=== PATIENT | male | born 1955 | race Two or more races ===

== ENCOUNTER 2018-11-02 01:06 | Inpatient (IN) | payer SELFPAY ==
[~2018-11-02] VITALS: Ht 165.1 cm; Wt 65.3 kg
[2018-11-02] MEDS ORDERED: IPRATRPIUM/ALBUTEROL 0.5/2.5MG 3 ML NEBU. ONE (01:47)
--- NOTE | 2018-11-02 01:59 | PHYS DOC ---
Past Medical History Past Medical History: No Pertinent History, Unknown Additional Past Medical Histor: Pt states he has never seen a physician Past Surgical History: No Surgical History Smokin Pack Per Day Alcohol Use: Heavy Drug Use: None Adult General Chief Complaint Chief Complaint: SHORTNESS OF BREATH HPI HPI Mr. Cueto is a 63yo M who presents w/ severe shortness of breath that began approximately 20min prior to arrival to the ED. States this h as occurred 3 times before but tonight's episode is worse than the other episodes. Denies chest pain. Denies trauma. Denies fever/chills. Denies leg swelling or calf tenderness. Denies cough. Patient reports he has never seen a doctor before in his life. Review of Systems Review of Systems Constitutional: Denies fever or chills Eyes: Denies redness or eye pain HENT: Denies nasal congestion or sore throat Respiratory: Reports shortness of breath. Denies cough or hemoptysis. Cardiovascular: Denies chest pain or palpitations GI: Denies abdominal pain, nausea, vomiting, constipation, diarrhea, or hematochezia : Denies dysuria or hematuria Musculoskeletal: Denies back pain or joint pain Neurologic: Denies headache, focal weakness or sensory changes Complete systems were reviewed and found to be within normal limits, except as documented in this note. Current Medications Current Medications Current Medications Medications (Trade) Dose Ordered Sig/Luciano Start Time Stop Time Status Last Admin Dose Admin Albuterol/ Ipratropium (Duoneb) 3 ml STK-MED ONCE 11/02/18 01:47 11/02/18 01:48 DC Aspirin (Kris Aspirin) 325 mg 1X ONCE 11/02/18 02:30 11/02/18 03:18 DC 11/02/18 02:30 325 MG Dexamethasone Sodium Phosphate (Decadron) 10 mg 1X ONCE 11/02/18 02:00 11/02/18 02:01 DC 11/02/18 02:00 10 MG Allergies Allergies Allergies Coded Allergies Type Severity Reaction Last Updated Verified No Known Drug Allergies 11/02/18 No Physical Exam Physical Exam Constitutional: well developed, well nourished, mild acute distress, non-toxic appearance HENT: Normocephalic, atraumatic, oropharynx moist Eyes: PERRL, EOMI, conjunctiva normal, no discharge Neck: Normal range of motion, no tenderness, supple Cardiovascular: Heart regular rate and rhythm w/o gallops, rubs, or murmurs. UE radial pulses intact 2/4 b/l. Lungs & Thorax: clear to auscultation w/ wheezing b/l and throughout Abdomen: Soft, no tenderness, no ecchymosis Skin: Warm, dry, no erythema, no rash Back: No tenderness, no CVA tenderness Extremities: No tenderness, ROM intact, no edema Neurologic: Alert and oriented X 3, normal motor function, normal sensory functi on, no focal deficits noted Psychologic: Affect normal, judgement normal, mood normal Current Patient Data Vital Signs Vital Signs Date Time Temp Pulse Resp B/P (MAP) Pulse Ox O2 Delivery O2 Flow Rate FiO2 11/02/18 02:27 74 19 111/71 (84) 95 Nasal Cannula 2.0 11/02/18 01:40 97.9 97.9 Lab Values Laboratory Tests Test 11/02/18 01:50 White Blood Count 12.5 x10^3/uL (4.0-11.0) H Red Blood Count 4.57 x10^6/uL (4.30-5.70) Hemoglobin 14.7 g/dL (13.0-17.5) Hematocrit 43.0 % (39.0-53.0) Mean Corpuscular Volume 94 fL (79-100) Mean Corpuscular Hemoglobin 32 pg (25-35) Mean Corpuscular Hemoglobin Concent 34 g/dL (31-37) Red Cell Distribution Width 13.8 % (11.5-14.5) Platelet Count 226 x10^3/uL (140-400) Neutrophils (%) (Auto) 63 % (31-73) Lymphocytes (%) (Auto) 30 % (24-48) Monocytes (%) (Auto) 4 % (0-9) Eosinophils (%) (Auto) 2 % (0-3) Basophils (%) (Auto) 1 % (0-3) Neutrophils # (Auto) 7.9 x10^3/uL (1.8-7.7) H Lymphocytes # (Auto) 3.7 x10^3/uL (1.0-4.8) Monocytes # (Auto) 0.6 x10^3/uL (0.0-1.1) Eosinophils # (Auto) 0.2 x10^3/uL (0.0-0.7) Basophils # (Auto) 0.1 x10^3/uL (0.0-0.2) D-Dimer (Humaira) 0.39 ug/mlFEU (0.00-0.50) Sodium Level 146 mmol/L (136-145) H Potassium Level 4.0 mmol/L (3.5-5.1) Chloride Level 108 mmol/L (98-107) H Carbon Dioxide Level 26 mmol/L (21-32) Anion Gap 12 (6-14) Blood Urea Nitrogen 13 mg/dL (8-26) Creatinine 0.8 mg/dL (0.7-1.3) Estimated GFR (Cockcroft-Gault) 97.3 BUN/Creatinine Ratio 16 (6-20) Glucose Level 120 mg/dL (70-99) H Lactic Acid Level 1.4 mmol/L (0.4-2.0) Calcium Level 8.3 mg/dL (8.5-10.1) L Magnesium Level 1.8 mg/dL (1.8-2.4) Total Bilirubin 0.4 mg/dL (0.2-1.0) Aspartate Amino Transferase (AST) 33 U/L (15-37) Alanine Aminotransferase (ALT) 33 U/L (16-63) Alkaline Phosphatase 89 U/L (46-116) Creatine Kinase 50 U/L (39-308) Creatine Kinase MB (Mass) 1.3 ng/mL (0.0-3.6) Creatine Kinase MB Relative Index % (0-4) Troponin I Quantitative 0.060 ng/mL (0.000-0.055) MK-Pme-B-Type Natriuretic Peptide 37 pg/mL (0-124) Total Protein 7.3 g/dL (6.4-8.2) Albumin 3.5 g/dL (3.4-5.0) Albumin/Globulin Ratio 0.9 (1.0-1.7) L Laboratory Tests 11/02/18 01:50 Laboratory Tests 11/02/18 01:50 EKG EKG @0157 NSR at 78bpm, NO ST elevation, QRS 88ms, QT/QTc 370/425ms Radiology/Procedures Radiology/Procedures PROCEDURE: CHEST PA & LATERAL EXAM: PA and Lateral Views of the Chest DATE: 11/02/2018 1:35 AM INDICATION: Dyspnea COMPARISON: No Prior FINDINGS: Aorta is mildly tortuous. The heart is not enlarged. Mediastinal and hilar contours are normal. Patchy opacities bilateral lung bases likely atelectasis or developing consolidation. No pleural effusion or pneumothorax. IMPRESSION: Patchy opacities bilateral lung bases likely atelectasis or developing consolidation. Electronically signed by: Marco Hurd MD (11/02/2018 2:45 AM) [facility] Course & Med Decision Making Course & Med Decision Making Pertinent Labs and Imaging studies reviewed. (See chart for details) Patient presents with HPI and physical exam concerning for COPD exacerbation,. Patient noted to be hypoxic upon arrival. Improved with supplemental O2. Symptomatic treatment provided with respiratory nebs and IV steroid. Patient reports interval improvement. Labs obtained and posted to chart. Troponin elevated. EKG stable. ASA given. CXR with signs of atelectasis. D-dimer WNL. Patient requiring admission for further evaluation and treatment. Discussed with Dr. Vila (hospitalist) who is in agreement with admission. Discussed findings and plan with patient and family, who acknowledge understanding and agreement. Dragon Disclaimer Dragon Disclaimer This electronic medical record was generated, in whole or in part, using a voice recognition dictation system. Departure Departure Impression: Primary Impression: COPD exacerbation Additional Impressions: Hypoxia Elevated troponin Disposition: ADMITTED INPATIENT Admitting Physician: JEFFERSON Parr) Condition: GUARDED Referrals: NO PCP (PCP) Critical Care Time Critical care time was 30 minutes which includes time at bedside, spent in discussion of patient's care with specialists and/or family members, with interpretation of laboratory and/or radiological studies and is exclusive of procedures. Problem Qualifiers SHRUTHI SHAW DO Nov 02, 2018 01:59
[2018-11-02] MEDS ORDERED: DEXAMETHASONE SOD PHOS 20 MG/5 ML VIAL. IV ONE (02:00)
[2018-11-02] MEDS ORDERED: IPRATRPIUM/ALBUTEROL 0.5/2.5MG 3 ML NEBU. NEB ONE (02:00)
[2018-11-02 02:03] LABS: BASO # 0.1 x10^3/uL (0.0-0.2); BASO % 1 % (0-3); EOS # 0.2 x10^3/uL (0.0-0.7); EOS % 2 % (0-3); HEMOGLOBIN 14.7 g/dL (13.0-17.5); LYMPH # 3.7 x10^3/uL (1.0-4.8); LYMPH % 30 % (24-48); MEAN CORPUSCULAR HEMOGLOBIN 32 pg (25-35); MEAN CORPUSCULAR HGB CONC 34 g/dL (31-37); MEAN CORPUSCULAR VOLUME 94 fL (79-100); MONO # 0.6 x10^3/uL (0.0-1.1); MONO % 4 % (0-9); NEUT # 7.9 x10^3/uL (1.8-7.7); NEUT % 63 % (31-73); PLATELET COUNT 226 x10^3/uL (140-400); RED BLOOD COUNT 4.57 x10^6/uL (4.30-5.70); RED CELL DISTRIBUTION WIDTH 13.8 % (11.5-14.5); WHITE BLOOD COUNT 12.5 x10^3/uL (4.0-11.0)
[2018-11-02 02:11] LABS: CALCIUM 8.3 mg/dL (8.5-10.1); CREATININE 0.8 mg/dL (0.7-1.3); GFR 97.3
[2018-11-02 02:19] LABS: ALBUMIN 3.5 g/dL (3.4-5.0); ALBUMIN/GLOBULIN RATIO 0.9 (1.0-1.7); MAGNESIUM 1.8 mg/dL (1.8-2.4); TOTAL BILIRUBIN 0.4 mg/dL (0.2-1.0); TOTAL PROTEIN 7.3 g/dL (6.4-8.2)
[2018-11-02 02:29] LABS: CREATINE KINASE 50 U/L (39-308)
[2018-11-02] MEDS ORDERED: ASPIRIN 325 MG TABLET PO ONE (02:30)
--- NOTE | 2018-11-02 02:49 | RAD ---
EXAM: PA and Lateral Views of the Chest DATE: 11/02/2018 1:35 AM INDICATION: Dyspnea COMPARISON: No Prior FINDINGS: Aorta is mildly tortuous. The heart is not enlarged. Mediastinal and hilar contours are normal. Patchy opacities bilateral lung bases likely atelectasis or developing consolidation. No pleural effusion or pneumothorax. IMPRESSION: Patchy opacities bilateral lung bases likely atelectasis or developing consolidation. Electronically signed by: Marco Hurd MD (11/02/2018 2:45 AM) [facility]
[2018-11-02] MEDS ORDERED: ONDANSETRON PF 4 MG/2 ML VIAL. IV PRN ×2 (03:30→09:30)
[2018-11-02 05:20] VITALS: BP 125/71
--- NOTE | 2018-11-02 05:53 | NUR ---
Admitted pt from Ed at 0520, received pt via wheelchair, pt is awake and oriented, Greek speaking but can understand little Yi. Pt denies home medication. Lives with his sister, [place] 4 [place].
[2018-11-02 07:40] VITALS: BP 118/60
--- NOTE | 2018-11-02 07:53 | EKG ---
[facility] [address] [place] [address] Test Date: 2018-11-02 Test Time: 01:57:07 Pat Name: KENNY ALVARADO Department: Room: Gender: M Business Executive: : 1955 Requested By: SHRUTHI SHAW Order Number: [id number] Reading MD: Measurements Intervals [place] Rate: 78 P: 61 CT: 158 QRS: 45 QRSD: 88 T: 60 QT: 370 QTc: 425 Interpretive Statements SINUS RHYTHM NO SPECIFIC ECG ABNORMALITIES RI6.01 No previous ECG available for comparison
[2018-11-02] MEDS ORDERED: ALBUTEROL SULFATE 2.5 MG/3 ML NEBU. NEB PRN (09:30)
[2018-11-02] MEDS ORDERED: ACETAMINOPHEN 500 MG TABLET PO PRN (09:30)
[2018-11-02] MEDS ORDERED: ACETAMINOPHEN/CODEINE 300/30MG TABLET. PO PRN (09:30)
[2018-11-02] MEDS ORDERED: TEMAZEPAM 7.5 MG CAPSULE PO PRN (09:30)
[2018-11-02] MEDS ORDERED: guaiFENesin DM 200MG/20MG 10 ML SYRUP PO PRN (09:30)
--- NOTE | 2018-11-02 10:01 | PDOC2 ---
CARDIAC CONSULT DATE OF CONSULT Date of Consult DATE: 11/02/18 TIME: 09:55 REASON FOR CONSULT Reason for Consult: Elevated troponin REFERRING PHYSICIAN Referring Physician: Dr. Hernandez SOURCE Source: Chart review, Patient HISTORY OF PRESENT ILLNESS HISTORY OF PRESENT ILLNESS This is a 63 yo Japanese-speaking male who presented secondary to shortness of breath. Troponin noted to be elevated, which prompted this consult. Patient repots acute onset of shortness of breath last that began around 11pm. [place] as if he couldn't catch his breath. Was slightly diaphoretic. Denies any associated chest pain, palpitations, dizziness, or nausea/vomiting. Reports that he got out of bed and went outside for some fresh air. This did not improved his shortness of breath, so sister encouraged him to go to the ED for further evaluation and treatment. Reports he has had this occur about a month ago, but was not this significant. Does notice some occasional shortness of breath upon awakening, but seems to improve during the day. No recent ARROYO or orthopnea. No known medical history as he does not go to the doctor. PAST MEDICAL HISTORY Cardiovascular: No pertinent hx Pulmonary: No pertinent hx GI: No pertinent hx Heme/Onc: No pertinent hx Hepatobiliary: No pertinent hx Psych: No pertinent hx Rheumatologic: No pertinent hx Infectious disease: No pertinent hx ENT: No pertinent hx Renal/: No pertinent hx Endocrine: No pertinent hx Dermatology: No pertinent hx PAST SURGICAL HISTORY Past Surgical History: No pertinent history FAMILY HISTORY Family History: Heart Disease, Hypertension, Stroke (mother ) SOCIAL HISTORY Smoke: 1 pack per day ALCOHOL: other (quit 5 months ago) Drugs: None Lives: with Family CURRENT MEDICATIONS CURRENT MEDICATIONS Current Medications Medications (Trade) Dose Ordered Sig/Luciano Route PRN Reason Start Time Stop Time Status Last Admin Dose Admin Albuterol/ Ipratropium (Duoneb) 3 ml 1X ONCE NEB 11/02/18 02:00 11/02/18 02:01 DC 11/02/18 01:51 Dexamethasone Sodium Phosphate (Decadron) 10 mg 1X ONCE IV 11/02/18 02:00 11/02/18 02:01 DC 11/02/18 02:00 Aspirin (Kris Aspirin) 325 mg 1X ONCE PO 11/02/18 02:30 11/02/18 03:18 DC 11/02/18 02:30 ALLERGIES ALLERGIES: Coded Allergies: No Known Drug Allergies (Unverified , 11/02/18) ROS Review of System 14 point ROS conducted with pertinent positives noted above in HPI. PHYSICAL EXAM General: Alert, Oriented X3, Cooperative, No acute distress HEENT: Atraumatic, Mucous membr. moist/pink Lungs: Clear to auscultation, Normal air movement, Other (diminished ) Heart: Regular rate, Normal S1, Normal S2, No murmurs Abdomen: Soft, No tenderness Extremities: No edema, Normal pulses Skin: No significant lesion Neuro: Sensation intact Psych/Mental Status: Mental status NL, Mood NL MUSCULOSKELETAL: Osteoarthritic changes both hands VITALS/I&O VITALS/I&O: Vital Signs Date Time Temp Pulse Resp B/P (MAP) Pulse Ox O2 Delivery O2 Flow Rate FiO2 11/02/18 08:00 Nasal Cannula 2.0 11/02/18 07:40 97.9 72 18 118/60 (79) 99 97.9 I & O 11/01/18 11/01/18 11/02/18 14:59 22:59 06:59 Intake Total 150 ml Balance 150 ml LABS Lab: Laboratory Tests Test 11/02/18 01:50 11/02/18 04:00 11/02/18 09:15 White Blood Count 12.5 x10^3/uL (4.0-11.0) H Red Blood Count 4.57 x10^6/uL (4.30-5.70) Hemoglobin 14.7 g/dL (13.0-17.5) Hematocrit 43.0 % (39.0-53.0) Mean Corpuscular Volume 94 fL (79-100) Mean Corpuscular Hemoglobin 32 pg (25-35) Mean Corpuscular Hemoglobin Concent 34 g/dL (31-37) Red Cell Distribution Width 13.8 % (11.5-14.5) Platelet Count 226 x10^3/uL (140-400) Neutrophils (%) (Auto) 63 % (31-73) Lymphocytes (%) (Auto) 30 % (24-48) Monocytes (%) (Auto) 4 % (0-9) Eosinophils (%) (Auto) 2 % (0-3) Basophils (%) (Auto) 1 % (0-3) Neutrophils # (Auto) 7.9 x10^3/uL (1.8-7.7) H Lymphocytes # (Auto) 3.7 x10^3/uL (1.0-4.8) Monocytes # (Auto) 0.6 x10^3/uL (0.0-1.1) Eosinophils # (Auto) 0.2 x10^3/uL (0.0-0.7) Basophils # (Auto) 0.1 x10^3/uL (0.0-0.2) D-Dimer (Humaira) 0.39 ug/mlFEU (0.00-0.50) Sodium Level 146 mmol/L (136-145) H Potassium Level 4.0 mmol/L (3.5-5.1) Chloride Level 108 mmol/L (98-107) H Carbon Dioxide Level 26 mmol/L (21-32) Anion Gap 12 (6-14) Blood Urea Nitrogen 13 mg/dL (8-26) Creatinine 0.8 mg/dL (0.7-1.3) Estimated GFR (Cockcroft-Gault) 97.3 BUN/Creatinine Ratio 16 (6-20) Glucose Level 120 mg/dL (70-99) H Lactic Acid Level 1.4 mmol/L (0.4-2.0) Calcium Level 8.3 mg/dL (8.5-10.1) L Magnesium Level 1.8 mg/dL (1.8-2.4) Total Bilirubin 0.4 mg/dL (0.2-1.0) Aspartate Amino Transferase (AST) 33 U/L (15-37) Alanine Aminotransferase (ALT) 33 U/L (16-63) Alkaline Phosphatase 89 U/L (46-116) Creatine Kinase 50 U/L (39-308) Creatine Kinase MB (Mass) 1.3 ng/mL (0.0-3.6) Creatine Kinase MB Relative Index % (0-4) Troponin I Quantitative 0.060 ng/mL (0.000-0.055) 0.658 ng/mL (0.000-0.055) 0.903 ng/mL (0.000-0.055) FY-Wsr-M-Type Natriuretic Peptide 37 pg/mL (0-124) Total Protein 7.3 g/dL (6.4-8.2) Albumin 3.5 g/dL (3.4-5.0) Albumin/Globulin Ratio 0.9 (1.0-1.7) L Laboratory Tests 11/02/18 01:50 Laboratory Tests 11/02/18 01:50 ASSESSMENT/PLAN ASSESSMENT/PLAN 1. Dyspnea; ? COPD with h/o chronic tobaccoism. cannot rule out obstructive CAD component 2. Elevated troponin; highest 0.9. CP free 3. Tobaccoism; discussed/encouraged cessation 4. Leukocytosis, ?CAP. CXR with consolidation Recommendations Echo to assess LV systolic function Add ASA, low-dose BB lipid panel Recheck trop in am Keep NPO p [place] D/w primary business services coordinator. If troponin continue to trend upward, or echo signific antly abnormal, will plan for further ischemic evaluation with [facility] tomorrow. THERESA EWING APRN Nov 02, 2018 10:01
[2018-11-02] MEDS: METOPROLOL TART IMMED RELEASE 25 MG TABLET. PO SCH ×2 (11:29→19:59)
[2018-11-02 11:30] VITALS: BP 124/68
--- NOTE | 2018-11-02 12:11 | CARD ---
MR#: [id number] Date of Study: 11/02/2018 Ordering Physician: THERESA EWING, Referring Physician: KARISSA BARCENAS Tech: Yee Rodriguez APPROVED REPORT EXAM: Two-dimensional and M-mode echocardiogram with Doppler and color Doppler. Other Information Quality : FairHR: 57bpm Technically limited study due to smoking INDICATION COPD Dyspnea RISK FACTORS Smoking 2D DIMENSIONS Left Atrium(2D)3.0 (1.6-4.0cm)IVSd1.2 (0.7-1.1cm) Aortic Root(2D)3.1 (2.0-3.7cm)LVDd5.1 (3.9-5.9cm) LVOT Diameter2.0 (1.8-2.4cm)PWd1.3 (0.7-1.1cm) LVDs3.0 (2.5-4.0cm)FS (%) 41.2 % SV88.7 ml Aortic Valve AoV Peak Lance.93.7cm/sAoV VTI22.8cm AO Peak GR.3.5mmHgLVOT Peak Lance.88.4cm/s LVOT VTI 19.11cmAO Mean GR.2mmHg LESTER (VMAX)2.48nx7QCU (VTI)2.75cm2 Mitral Valve MV E Uerhcsxk81.7cm/sMV DECEL ZUQP320pr MV A Jdcncbwu79.6cm/sMV YTW69lh E/A Ratio0.9MVA (PHT)4.43cm2 TDI E/Lateral E'9.2E/Medial E'9.7 Pulmonary Valve PV Peak Tvwwyobk72.6cm/sPV Peak Grad.2mmHg Tricuspid Valve TR P. Gzgnjxgq285tc/sRAP OQPHINGT2dlBx TR Peak Gr.55dfXfIYHZ80iqPu Pulmonary Vein S1 Hmtdynzd77.1cm/sD2 Xzlziqsd55.9cm/s PVa [id number] LEFT VENTRICLE The left ventricle is normal size. There is mild concentric left ventricular hypertrophy. The left ve ntricular systolic function is normal and the ejection fraction is within normal range. The Ejection Fraction is 55-60%. There is normal LV segmental wall motion. Transmitral Doppler flow pattern is Gra de I-abnormal relaxation pattern. RIGHT VENTRICLE The right ventricle is mildly dilated. There is normal right ventricular wall thickness. The right ve ntricular systolic function is normal. ATRIA The left atrium is borderline dilated. The right atrium size is normal. The interatrial septum is int act with no evidence for an atrial septal defect or patent foramen ovale as noted on 2-D or Doppler i maging. AORTIC VALVE The aortic valve is normal in structure and function. Doppler and Color Flow revealed trace aortic re gurgitation. There is no significant aortic valvular stenosis. MITRAL VALVE The mitral valve is thickened but opens well. There is no evidence of mitral valve prolapse. There is no mitral valve stenosis. Doppler and Color-flow revealed trace mitral regurgitation. TRICUSPID VALVE The tricuspid valve is normal in structure and function. Doppler and Color Flow revealed trace tricus pid regurgitation with an estimated PAP of 36 mmHg. There is no tricuspid valve prolapse or vegetatio n. There is no tricuspid valve stenosis. PULMONIC VALVE The pulmonic valve is not well visualized. Doppler and Color Flow revealed no pulmonic valvular regur gitation. GREAT VESSELS The aortic root is normal in size. The IVC is normal in size and collapses >50% with inspiration. PERICARDIAL EFFUSION There is no evidence of significant pericardial effusion. Critical Notification Critical Value: No <Conclusion> The left ventricle is normal size. The left ventricular systolic function is normal and the ejection fraction is within normal range. The Ejection Fraction is 55-60%. There is mild concentric left ventricular hypertrophy. There is no significant aortic valvular stenosis. Doppler and Color Flow revealed trace aortic regurgitation. Doppler and Color-flow revealed trace mitral regurgitation. Doppler and Color Flow revealed trace tricuspid regurgitation with an estimated PAP of 36 mmHg. Signed by : Mickey Sr MD Electronically Approved : 11/02/2018 12:11:35
[2018-11-02] MEDS ORDERED: NICO1PAT21 TP (12:21)
[2018-11-02] MEDS ORDERED: METO25TA4 PO (12:21)
[2018-11-02] MEDS ORDERED: ASPI-612 PO (12:21)
[2018-11-02] MEDS ORDERED: CEPH-264 PO (12:21)
[2018-11-02] MEDS ORDERED: ALBU2.5V8 INH (12:21)
[2018-11-02] MEDS ORDERED: GUAI5SYR PO (12:21)
--- NOTE | 2018-11-02 12:26 | PDOC1 ---
History and Physical Date of Admission Date of Admission DATE: 11/02/18 TIME: 12:22 Identification/Chief Complaint Chief Complaint S OA and chest pain Source Source: Caregiver, Chart review, Patient History of Present Illness History of Present Illness 63-year-old male, limited lithuanian, smoker a pack a day, no home meds to reconcile, unable to quit smoking, SOA and chest pain with some acute bronchitis symptoms For the past few days. No fever. Chest x-ray shows maybe beginning consolidation. Troponin mildly elevated 0.06 then 0.6 and hemodynamically stable and seen by cardiology with reassuring EKG and has ordered echocardiogram. WBC 12.55, hypernatremia mild 146 MInimal wheezing, if echo today, home on PCN, BB, ASA 81, nebs, cough med,. SP Dw help of welder gas tungsten arc and rn at bedside. Past Medical History Cardiovascular: No pertinent hx Pulmonary: No pertinent hx GI: No pertinent hx Heme/Onc: No pertinent hx Hepatobiliary: No pertinent hx Psych: No pertinent hx Rheumatologic: No pertinent hx Infectious disease: No pertinent hx ENT: No pertinent hx Renal/: No pertinent hx Endocrine: No pertinent hx Dermatology: No pertinent hx Past Surgical History Past Surgical History: No pertinent history Family History Family History: Heart Disease, Hypertension, Stroke (mother ) Social History Smoke: 1 pack per day ALCOHOL: none Drugs: None Current Problem List Problem List Problems Medical Problems: (1) Hypoxia Status: Acute Current Medications Current Medications Current Medications Albuterol/ Ipratropium (Duoneb) 3 ml 1X ONCE NEB Last administered on 11/02/18at 01:51; Start 11/02/18 at 02:00; Stop 11/02/18 at 02:01; Status DC Dexamethasone Sodium Phosphate (Decadron) 10 mg 1X ONCE IV Last administered on 11/02/18at 02:00; Start 11/02/18 at 02:00; Stop 11/02/18 at 02:01; Status DC Albuterol/ Ipratropium (Duoneb) 3 ml STK-MED ONCE .ROUTE ; Start 11/02/18 at 01:47; Stop 11/02/18 at 01:48; Status DC Aspirin (Kris Aspirin) 325 mg 1X ONCE PO Last administered on 11/02/18at 02:30; Start 11/02/18 at 02:30; Stop 11/02/18 at 03:18; Status DC Ondansetron HCl (Zofran) 4 mg PRN Q8HRS PRN IV NAUSEA/VOMITING; Start 11/02/18 at 03:30; Stop 11/02/18 at 09:30; Status DC Ondansetron HCl (Zofran) 4 mg PRN Q6HRS PRN IV NAUSEA/VOMITING; Start 11/02/18 at 09:30 Acetaminophen/ Codeine Phosphate (Tylenol #3) 1 tab PRN Q6HRS PRN PO MODERATE - SEVERE PAIN; Start 11/02/18 at 09:30 Acetaminophen (Tylenol) 500 mg PRN Q6HRS PRN PO MILD PAIN / TEMP; Start at 09:30 Guaifenesin (Robitussin Dm) 10 ml PRN Q6HRS PRN PO COUGH; Start 11/02/18 at 09:30 Temazepam (Restoril) 7.5 mg PRN QHS PRN PO INSOMNIA; Start 11/02/18 at 09:30 Albuterol Sulfate (Ventolin Neb Soln) 2.5 mg PRN Q4HRS PRN NEB SHORTNESS OF BREATH; Start 11/02/18 at 09:30 Aspirin (Ecotrin) 81 mg DAILYWBKFT PO ; Start 11/03/18 at 08:00 Metoprolol Tartrate (Lopressor) 12.5 mg BID PO Last administered on 11/02/18at 11:29; Start 11/02/18 at 10:30 Active Scripts Active Keflex (Cephalexin) 500 Mg Capsule 1 Cap PO TID NICODERM CQ 21mg (Nicotine) 1 Each Patch.td24 1 Patch TP DAILY Proair Hfa (Albuterol Sulfate) 8.5 Gm Hfa.aer.ad 1 Puff INH PRN Q6HRS PRN 30 Days Aspirin Ec (Aspirin) 81 Mg Tablet.dr 81 Mg PO DAILYWBKFT Guaifenesin Dm Syrup (Guaifenesin/Dextromethorphan) 5 Ml Syrup 10 Ml PO PRN Q6HRS PRN 7 Days Metoprolol Tartrate 25 Mg Tablet 12.5 Mg PO BID Allergies Allergies: Coded Allergies: No Known Drug Allergies (Unverified , 11/02/18) ROS Review of System As per history of present illness, the rest of ROS 14 point negative Physical Exam General: Alert, Oriented X3, Cooperative, No acute distress HEENT: Atraumatic, PERRLA Lungs: Normal air movement, Other (equal chest expansion no crackles no wheez ing) Heart: S1S2, RRR, no thrills, no rubs, no gallops, no murmurs Cardiovascular: S1, S2 Abdomen: Normal bowel sounds, Soft, No tenderness, No hepatosplenomegaly, No masses Male Genitals Exam: normal genitalia, normal prostate Extremities: No clubbing, No cyanosis, No edema, Normal pulses, No tenderness/swelling Skin: No rashes, No breakdown, No significant lesion Neuro: Normal gait, Normal speech, Strength at 5/5 X4 ext, Normal tone, Sensation intact, Cranial nerves 3-12 NL, Reflexes 2+ Psych/Mental Status: Mental status NL, Mood NL Vitals Vitals Vital Signs Date Time Temp Pulse Resp B/P (MAP) Pulse Ox O2 Delivery O2 Flow Rate FiO2 11/02/18 11:30 98.2 56 18 124/68 (86) 99 Nasal Cannula 2.0 98.2 Labs Labs Laboratory Tests Test 11/02/18 01:50 11/02/18 04:00 11/02/18 09:15 White Blood Count 12.5 x10^3/uL (4.0-11.0) Red Blood Count 4.57 x10^6/uL (4.30-5.70) Hemoglobin 14.7 g/dL (13.0-17.5) Hematocrit 43.0 % (39.0-53.0) Mean Corpuscular Volume 94 fL (79-100) Mean Corpuscular Hemoglobin 32 pg (25-35) Mean Corpuscular Hemoglobin Concent 34 g/dL (31-37) Red Cell Distribution Width 13.8 % (11.5-14.5) Platelet Count 226 x10^3/uL (140-400) Neutrophils (%) (Auto) 63 % (31-73) Lymphocytes (%) (Auto) 30 % (24-48) Monocytes (%) (Auto) 4 % (0-9) Eosinophils (%) (Auto) 2 % (0-3) Basophils (%) (Auto) 1 % (0-3) Neutrophils # (Auto) 7.9 x10^3/uL (1.8-7.7) Lymphocytes # (Auto) 3.7 x10^3/uL (1.0-4.8) Monocytes # (Auto) 0.6 x10^3/uL (0.0-1.1) Eosinophils # (Auto) 0.2 x10^3/uL (0.0-0.7) Basophils # (Auto) 0.1 x10^3/uL (0.0-0.2) D-Dimer (Humaira) 0.39 ug/mlFEU (0.00-0.50) Sodium Level 146 mmol/L (136-145) Potassium Level 4.0 mmol/L (3.5-5.1) Chloride Level 108 mmol/L (98-107) Carbon Dioxide Level 26 mmol/L (21-32) Anion Gap 12 (6-14) Blood Urea Nitrogen 13 mg/dL (8-26) Creatinine 0.8 mg/dL (0.7-1.3) Estimated GFR (Cockcroft-Gault) 97.3 BUN/Creatinine Ratio 16 (6-20) Glucose Level 120 mg/dL (70-99) Lactic Acid Level 1.4 mmol/L (0.4-2.0) Calcium Level 8.3 mg/dL (8.5-10.1) Magnesium Level 1.8 mg/dL (1.8-2.4) Total Bilirubin 0.4 mg/dL (0.2-1.0) Aspartate Amino Transf (AST/SGOT) 33 U/L (15-37) Alanine Aminotransferase (ALT/SGPT) 33 U/L (16-63) Alkaline Phosphatase 89 U/L (46-116) Creatine Kinase 50 U/L (39-308) Creatine Kinase MB (Mass) 1.3 ng/mL (0.0-3.6) Creatine Kinase MB Relative Index % (0-4) Troponin I Quantitative 0.060 ng/mL (0.000-0.055) 0.658 ng/mL (0.000-0.055) 0.903 ng/mL (0.000-0.055) OE-Cju-X-Type Natriuretic Peptide 37 pg/mL (0-124) Total Protein 7.3 g/dL (6.4-8.2) Albumin 3.5 g/dL (3.4-5.0) Albumin/Globulin Ratio 0.9 (1.0-1.7) Laboratory Tests Test 11/02/18 01:50 11/02/18 04:00 11/02/18 09:15 White Blood Count 12.5 x10^3/uL (4.0-11.0) Red Blood Count 4.57 x10^6/uL (4.30-5.70) Hemoglobin 14.7 g/dL (13.0-17.5) Hematocrit 43.0 % (39.0-53.0) Mean Corpuscular Volume 94 fL (79-100) Mean Corpuscular Hemoglobin 32 pg (25-35) Mean Corpuscular Hemoglobin Concent 34 g/dL (31-37) Red Cell Distribution Width 13.8 % (11.5-14.5) Platelet Count 226 x10^3/uL (140-400) Neutrophils (%) (Auto) 63 % (31-73) Lymphocytes (%) (Auto) 30 % (24-48) Monocytes (%) (Auto) 4 % (0-9) Eosinophils (%) (Auto) 2 % (0-3) Basophils (%) (Auto) 1 % (0-3) Neutrophils # (Auto) 7.9 x10^3/uL (1.8-7.7) Lymphocytes # (Auto) 3.7 x10^3/uL (1.0-4.8) Monocytes # (Auto) 0.6 x10^3/uL (0.0-1.1) Eosinophils # (Auto) 0.2 x10^3/uL (0.0-0.7) Basophils # (Auto) 0.1 x10^3/uL (0.0-0.2) D-Dimer (Humaira) 0.39 ug/mlFEU (0.00-0.50) Sodium Level 146 mmol/L (136-145) Potassium Level 4.0 mmol/L (3.5-5.1) Chloride Level 108 mmol/L (98-107) Carbon Dioxide Level 26 mmol/L (21-32) Anion Gap 12 (6-14) Blood Urea Nitrogen 13 mg/dL (8-26) Creatinine 0.8 mg/dL (0.7-1.3) Estimated GFR (Cockcroft-Gault) 97.3 BUN/Creatinine Ratio 16 (6-20) Glucose Level 120 mg/dL (70-99) Lactic Acid Level 1.4 mmol/L (0.4-2.0) Calcium Level 8.3 mg/dL (8.5-10.1) Magnesium Level 1.8 mg/dL (1.8-2.4) Total Bilirubin 0.4 mg/dL (0.2-1.0) Aspartate Amino Transf (AST/SGOT) 33 U/L (15-37) Alanine Aminotransferase (ALT/SGPT) 33 U/L (16-63) Alkaline Phosphatase 89 U/L (46-116) Creatine Kinase 50 U/L (39-308) Creatine Kinase MB (Mass) 1.3 ng/mL (0.0-3.6) Creatine Kinase MB Relative Index % (0-4) Troponin I Quantitative 0.060 ng/mL (0.000-0.055) 0.658 ng/mL (0.000-0.055) 0.903 ng/mL (0.000-0.055) EO-Evz-Y-Type Natriuretic Peptide 37 pg/mL (0-124) Total Protein 7.3 g/dL (6.4-8.2) Albumin 3.5 g/dL (3.4-5.0) Albumin/Globulin Ratio 0.9 (1.0-1.7) VTE Prophylaxis Ordered VTE Prophylaxis Devices: Yes VTE Pharmacological Prophylaxi: Yes Assessment/Plan Assessment/Plan CAP SmOker SiRS. no sepsis ELevated trop - peaks at 0.6 Leukocytosis MIld hypernat - 146 PLAN: Echo, if ok, home today on keflex, BB< asa 81, pro air, steroid taper and cough med OBS JACKIE FREITAS MD Nov 02, 2018 12:26
--- NOTE | 2018-11-02 12:27 | PDOC3 ---
Discharge Summary Visit Information Date of Admission: Nov 01, 2018 Date of Discharge: Nov 02, 2018 Admitting Diagnosis Comment: CAP - beginning consolidation on CXR Smoker Mild hypernatremia 146 Elevated troponin with reassuring EKG-peaks 0.6-echo pending SIRS, no sepsis Final Diagnosis Problems Medical Problems: (1) Hypoxia Status: Acute Brief Hospital Course Allergies Allergies Coded Allergies Type Severity Reaction Last Updated Verified No Known Drug Allergies 11/02/18 No Vital Signs Vital Signs Date Time Temp Pulse Resp B/P (MAP) Pulse Ox O2 Delivery O2 Flow Rate FiO2 11/02/18 11:30 98.2 56 18 124/68 (86) 99 Nasal Cannula 2.0 98.2 Lab Results Laboratory Tests Test 11/02/18 01:50 11/02/18 04:00 11/02/18 09:15 White Blood Count 12.5 x10^3/uL (4.0-11.0) Red Blood Count 4.57 x10^6/uL (4.30-5.70) Hemoglobin 14.7 g/dL (13.0-17.5) Hematocrit 43.0 % (39.0-53.0) Mean Corpuscular Volume 94 fL (79-100) Mean Corpuscular Hemoglobin 32 pg (25-35) Mean Corpuscular Hemoglobin Concent 34 g/dL (31-37) Red Cell Distribution Width 13.8 % (11.5-14.5) Platelet Count 226 x10^3/uL (140-400) Neutrophils (%) (Auto) 63 % (31-73) Lymphocytes (%) (Auto) 30 % (24-48) Monocytes (%) (Auto) 4 % (0-9) Eosinophils (%) (Auto) 2 % (0-3) Basophils (%) (Auto) 1 % (0-3) Neutrophils # (Auto) 7.9 x10^3/uL (1.8-7.7) Lymphocytes # (Auto) 3.7 x10^3/uL (1.0-4.8) Monocytes # (Auto) 0.6 x10^3/uL (0.0-1.1) Eosinophils # (Auto) 0.2 x10^3/uL (0.0-0.7) Basophils # (Auto) 0.1 x10^3/uL (0.0-0.2) D-Dimer (Humaira) 0.39 ug/mlFEU (0.00-0.50) Sodium Level 146 mmol/L (136-145) Potassium Level 4.0 mmol/L (3.5-5.1) Chloride Level 108 mmol/L (98-107) Carbon Dioxide Level 26 mmol/L (21-32) Anion Gap 12 (6-14) Blood Urea Nitrogen 13 mg/dL (8-26) Creatinine 0.8 mg/dL (0.7-1.3) Estimated GFR (Cockcroft-Gault) 97.3 BUN/Creatinine Ratio 16 (6-20) Glucose Level 120 mg/dL (70-99) Lactic Acid Level 1.4 mmol/L (0.4-2.0) Calcium Level 8.3 mg/dL (8.5-10.1) Magnesium Level 1.8 mg/dL (1.8-2.4) Total Bilirubin 0.4 mg/dL (0.2-1.0) Aspartate Amino Transf (AST/SGOT) 33 U/L (15-37) Alanine Aminotransferase (ALT/SGPT) 33 U/L (16-63) Alkaline Phosphatase 89 U/L (46-116) Creatine Kinase 50 U/L (39-308) Creatine Kinase MB (Mass) 1.3 ng/mL (0.0-3.6) Creatine Kinase MB Relative Index % (0-4) Troponin I Quantitative 0.060 ng/mL (0.000-0.055) 0.658 ng/mL (0.000-0.055) 0.903 ng/mL (0.000-0.055) KC-Rqr-K-Type Natriuretic Peptide 37 pg/mL (0-124) Total Protein 7.3 g/dL (6.4-8.2) Albumin 3.5 g/dL (3.4-5.0) Albumin/Globulin Ratio 0.9 (1.0-1.7) Laboratory Tests Test 11/02/18 01:50 11/02/18 04:00 11/02/18 09:15 White Blood Count 12.5 x10^3/uL (4.0-11.0) Red Blood Count 4.57 x10^6/uL (4.30-5.70) Hemoglobin 14.7 g/dL (13.0-17.5) Hematocrit 43.0 % (39.0-53.0) Mean Corpuscular Volume 94 fL (79-100) Mean Corpuscular Hemoglobin 32 pg (25-35) Mean Corpuscular Hemoglobin Concent 34 g/dL (31-37) Red Cell Distribution Width 13.8 % (11.5-14.5) Platelet Count 226 x10^3/uL (140-400) Neutrophils (%) (Auto) 63 % (31-73) Lymphocytes (%) (Auto) 30 % (24-48) Monocytes (%) (Auto) 4 % (0-9) Eosinophils (%) (Auto) 2 % (0-3) Basophils (%) (Auto) 1 % (0-3) Neutrophils # (Auto) 7.9 x10^3/uL (1.8-7.7) Lymphocytes # (Auto) 3.7 x10^3/uL (1.0-4.8) Monocytes # (Auto) 0.6 x10^3/uL (0.0-1.1) Eosinophils # (Auto) 0.2 x10^3/uL (0.0-0.7) Basophils # (Auto) 0.1 x10^3/uL (0.0-0.2) D-Dimer (Humaira) 0.39 ug/mlFEU (0.00-0.50) Sodium Level 146 mmol/L (136-145) Potassium Level 4.0 mmol/L (3.5-5.1) Chloride Level 108 mmol/L (98-107) Carbon Dioxide Level 26 mmol/L (21-32) Anion Gap 12 (6-14) Blood Urea Nitrogen 13 mg/dL (8-26) Creatinine 0.8 mg/dL (0.7-1.3) Estimated GFR (Cockcroft-Gault) 97.3 BUN/Creatinine Ratio 16 (6-20) Glucose Level 120 mg/dL (70-99) Lactic Acid Level 1.4 mmol/L (0.4-2.0) Calcium Level 8.3 mg/dL (8.5-10.1) Magnesium Level 1.8 mg/dL (1.8-2.4) Total Bilirubin 0.4 mg/dL (0.2-1.0) Aspartate Amino Transf (AST/SGOT) 33 U/L (15-37) Alanine Aminotransferase (ALT/SGPT) 33 U/L (16-63) Alkaline Phosphatase 89 U/L (46-116) Creatine Kinase 50 U/L (39-308) Creatine Kinase MB (Mass) 1.3 ng/mL (0.0-3.6) Creatine Kinase MB Relative Index % (0-4) Troponin I Quantitative 0.060 ng/mL (0.000-0.055) 0.658 ng/mL (0.000-0.055) 0.903 ng/mL (0.000-0.055) CL-Znh-Z-Type Natriuretic Peptide 37 pg/mL (0-124) Total Protein 7.3 g/dL (6.4-8.2) Albumin 3.5 g/dL (3.4-5.0) Albumin/Globulin Ratio 0.9 (1.0-1.7) Brief Hospital Course Mr. Suarez is a 63 old [sex] who presented with [ ] 63-year-old male, limited turkish, smoker a pack a day, no home meds to reconcile, unable to quit smoking, SOA and chest pain with some acute bronchitis symptoms For the past few days. No fever. Chest x-ray shows maybe beginning consolidation. Troponin mildly elevated 0.06 then 0.6 and hemodynamically stable and seen by cardiology with reassuring EKG and has ordered echocardiogram. WBC 12.55, hypernatremia mild 146 MInimal wheezing, if echo today, home on PCN, BB, ASA 81, nebs, cough med,. SP Dw help of supervisor intermediates and rn at bedside. Discharge Information Condition at Discharge: Improved, Stable Disposition/Orders: D/C to Home Scheduled Aspirin (Aspirin Ec) 81 Mg Tablet., 81 MG PO DAILYWBKFT for primary prevention, #60 Prescribed by: JACKIE FREITAS on 11/02/18 1221 Cephalexin (Keflex) 500 Mg Capsule, 1 CAP PO TID for CAP, #21 Prescribed by: JACKIE FREITAS on 11/02/18 1221 Metoprolol Tartrate (Metoprolol Tartrate) 25 Mg Tablet, 12.5 MG PO BID for htn, #60 Prescribed by: JACKIE FREITAS on 11/02/18 1221 Nicotine (NICODERM CQ 21mg) 1 Each Patch.td24, 1 PATCH TP DAILY for smoking, #28 Ref 1 Prescribed by: JACKIE FREITAS on 11/02/18 1221 Scheduled PRN Albuterol Sulfate (Proair Hfa) 8.5 Gm Hfa.aer.ad, 1 PUFF INH PRN Q6HRS PRN for SHORTNESS OF BREATH for 30 Days Prescribed by: JACKIE FREITAS on 11/02/18 1221 Guaifenesin/Dextromethorphan (Guaifenesin Dm Syrup) 5 Ml Syrup, 10 ML PO PRN Q6HRS PRN for COUGH for 7 Days Prescribed by: JACKIE FREITAS on 11/02/18 1221 JACKIE FREITAS MD Nov 02, 2018 12:27
--- NOTE | 2018-11-02 14:03 | NUR ---
Clarified with Cardio [employer] MECHANICMitzi at 1400 about the patient's cardiac work up. Cardio service wants the patient to stay one more night, recheck troponin for trend; will update primary MD.
--- NOTE | 2018-11-02 14:45 | PDOC ---
Provider Note Provider Note Trop 0.06, 0.6 now 0.9 with reassuring echo HOLD DC PER CARDS DRAW TROP in AM JACKIE FREITAS MD Nov 02, 2018 14:45
[2018-11-02 15:10] VITALS: BP 126/57
--- NOTE | 2018-11-02 15:50 | NUR ---
SW following pt for dc planning. Chart reviewed and pt lives at home and is self pay. HCFS will follow for Self pay status. No SW needs noted at this time.
[2018-11-02 19:39] VITALS: BP 129/58
[2018-11-02 23:19] VITALS: BP 131/61
[2018-11-03 03:29] VITALS: BP 130/56
[2018-11-03 05:59] LABS: CHOLESTEROL/HDL RATIO 5.3
[2018-11-03 07:00] VITALS: BP 126/58
[2018-11-03] MEDS: METOPROLOL TART IMMED RELEASE 25 MG TABLET. PO SCH ×2 (07:36→20:00)
[2018-11-03] MEDS: ASPIRIN ENTERIC COATED 81 MG TABLET.DR. PO SCH (07:54)
[2018-11-03 11:18] LABS: BASO % 0 % (0-3); EOS % 0 % (0-3); HEMATOCRIT 41.8 % (39.0-53.0); HEMOGLOBIN 14.2 g/dL (13.0-17.5); LYMPH # 3.1 x10^3/uL (1.0-4.8); LYMPH % 23 % (24-48); MEAN CORPUSCULAR HEMOGLOBIN 32 pg (25-35); MEAN CORPUSCULAR HGB CONC 34 g/dL (31-37); MEAN CORPUSCULAR VOLUME 93 fL (79-100); MONO # 0.8 x10^3/uL (0.0-1.1); MONO % 6 % (0-9); NEUT # 9.3 x10^3/uL (1.8-7.7); NEUT % 70 % (31-73); PLATELET COUNT 224 x10^3/uL (140-400); RED BLOOD COUNT 4.47 x10^6/uL (4.30-5.70); RED CELL DISTRIBUTION WIDTH 13.9 % (11.5-14.5); WHITE BLOOD COUNT 13.1 x10^3/uL (4.0-11.0)
[2018-11-03 11:32] VITALS: BP 110/66
[2018-11-03 11:51] LABS: % BANDS 1 % (0-9); % EOS 1 % (0-5); % LYMPHS 28 % (24-48); % MONOS 5 % (0-10); % SEGS 65 % (35-66); PLT ESTIMATE ADEQUATE (ADEQUATE)
--- NOTE | 2018-11-03 13:19 | PDOC3 ---
Discharge Summary Visit Information Date of Admission: Nov 01, 2018 Date of Discharge: Nov 03, 2018 Admitting Diagnosis Comment: CAP - beginning consolidation on CXR Smoker Mild hypernatremia 146 Elevated troponin with reassuring EKG-peaks 0.6-echo good SIRS, no sepsis Final Diagnosis Problems Medical Problems: (1) Hypoxia Status: Acute Brief Hospital Course Allergies Allergies Coded Allergies Type Severity Reaction Last Updated Verified No Known Drug Allergies 11/02/18 No Vital Signs Vital Signs Date Time Temp Pulse Resp B/P (MAP) Pulse Ox O2 Delivery O2 Flow Rate FiO2 11/03/18 11:32 98.2 59 15 110/66 (81) 95 Room Air 98.2 11/02/18 15:10 2.0 Lab Results Laboratory Tests Test 11/02/18 01:50 11/02/18 04:00 11/02/18 09:15 11/03/18 05:00 White Blood Count 12.5 x10^3/uL (4.0-11.0) 13.1 x10^3/uL (4.0-11.0) Red Blood Count 4.57 x10^6/uL (4.30-5.70) 4.47 x10^6/uL (4.30-5.70) Hemoglobin 14.7 g/dL (13.0-17.5) 14.2 g/dL (13.0-17.5) Hematocrit 43.0 % (39.0-53.0) 41.8 % (39.0-53.0) Mean Corpuscular Volume 94 fL (79-100) 93 fL (79-100) Mean Corpuscular Hemoglobin 32 pg (25-35) 32 pg (25-35) Mean Corpuscular Hemoglobin Concent 34 g/dL (31-37) 34 g/dL (31-37) Red Cell Distribution Width 13.8 % (11.5-14.5) 13.9 % (11.5-14.5) Platelet Count 226 x10^3/uL (140-400) 224 x10^3/uL (140-400) Neutrophils (%) (Auto) 63 % (31-73) 70 % (31-73) Lymphocytes (%) (Auto) 30 % (24-48) 23 % (24-48) Monocytes (%) (Auto) 4 % (0-9) 6 % (0-9) Eosinophils (%) (Auto) 2 % (0-3) 0 % (0-3) Basophils (%) (Auto) 1 % (0-3) 0 % (0-3) Neutrophils # (Auto) 7.9 x10^3/uL (1.8-7.7) 9.3 x10^3/uL (1.8-7.7) Lymphocytes # (Auto) 3.7 x10^3/uL (1.0-4.8) 3.1 x10^3/uL (1.0-4.8) Monocytes # (Auto) 0.6 x10^3/uL (0.0-1.1) 0.8 x10^3/uL (0.0-1.1) Eosinophils # (Auto) 0.2 x10^3/uL (0.0-0.7) 0.0 x10^3/uL (0.0-0.7) Basophils # (Auto) 0.1 x10^3/uL (0.0-0.2) 0.0 x10^3/uL (0.0-0.2) D-Dimer (Humaira) 0.39 ug/mlFEU (0.00-0.50) Sodium Level 146 mmol/L (136-145) Potassium Level 4.0 mmol/L (3.5-5.1) Chloride Level 108 mmol/L (98-107) Carbon Dioxide Level 26 mmol/L (21-32) Anion Gap 12 (6-14) Blood Urea Nitrogen 13 mg/dL (8-26) Creatinine 0.8 mg/dL (0.7-1.3) Estimated GFR (Cockcroft-Gault) 97.3 BUN/Creatinine Ratio 16 (6-20) Glucose Level 120 mg/dL (70-99) Lactic Acid Level 1.4 mmol/L (0.4-2.0) Calcium Level 8.3 mg/dL (8.5-10.1) Magnesium Level 1.8 mg/dL (1.8-2.4) Total Bilirubin 0.4 mg/dL (0.2-1.0) Aspartate Amino Transf (AST/SGOT) 33 U/L (15-37) Alanine Aminotransferase (ALT/SGPT) 33 U/L (16-63) Alkaline Phosphatase 89 U/L (46-116) Creatine Kinase 50 U/L (39-308) Creatine Kinase MB (Mass) 1.3 ng/mL (0.0-3.6) Creatine Kinase MB Relative Index % (0-4) Troponin I Quantitative 0.060 ng/mL (0.000-0.055) 0.658 ng/mL (0.000-0.055) 0.903 ng/mL (0.000-0.055) 0.610 ng/mL (0.000-0.055) HX-Por-A-Type Natriuretic Peptide 37 pg/mL (0-124) Total Protein 7.3 g/dL (6.4-8.2) Albumin 3.5 g/dL (3.4-5.0) Albumin/Globulin Ratio 0.9 (1.0-1.7) Segmented Neutrophils % 65 % (35-66) Band Neutrophils % 1 % (0-9) Lymphocytes % 28 % (24-48) Monocytes % 5 % (0-10) Eosinophils % 1 % (0-5) Platelet Estimate Adequate (ADEQUATE) Triglycerides Level 110 mg/dL (0-150) Cholesterol Level 159 mg/dL (0-200) LDL Cholesterol, Calculated 107 mg/dL (0-100) VLDL Cholesterol, Calculated 22 mg/dL (0-40) Non-HDL Cholesterol Calculated 129 mg/dL (0-129) HDL Cholesterol 30 mg/dL (40-60) Cholesterol/HDL Ratio 5.3 Test 11/03/18 11:20 Troponin I Quantitative 0.401 ng/mL (0.000-0.055) Laboratory Tests Test 11/03/18 05:00 11/03/18 11:20 White Blood Count 13.1 x10^3/uL (4.0-11.0) Red Blood Count 4.47 x10^6/uL (4.30-5.70) Hemoglobin 14.2 g/dL (13.0-17.5) Hematocrit 41.8 % (39.0-53.0) Mean Corpuscular Volume 93 fL (79-100) Mean Corpuscular Hemoglobin 32 pg (25-35) Mean Corpuscular Hemoglobin Concent 34 g/dL (31-37) Red Cell Distribution Width 13.9 % (11.5-14.5) Platelet Count 224 x10^3/uL (140-400) Neutrophils (%) (Auto) 70 % (31-73) Lymphocytes (%) (Auto) 23 % (24-48) Monocytes (%) (Auto) 6 % (0-9) Eosinophils (%) (Auto) 0 % (0-3) Basophils (%) (Auto) 0 % (0-3) Neutrophils # (Auto) 9.3 x10^3/uL (1.8-7.7) Lymphocytes # (Auto) 3.1 x10^3/uL (1.0-4.8) Monocytes # (Auto) 0.8 x10^3/uL (0.0-1.1) Eosinophils # (Auto) 0.0 x10^3/uL (0.0-0.7) Basophils # (Auto) 0.0 x10^3/uL (0.0-0.2) Segmented Neutrophils % 65 % (35-66) Band Neutrophils % 1 % (0-9) Lymphocytes % 28 % (24-48) Monocytes % 5 % (0-10) Eosinophils % 1 % (0-5) Platelet Estimate Adequate (ADEQUATE) Troponin I Quantitative 0.610 ng/mL (0.000-0.055) 0.401 ng/mL (0.000-0.055) Triglycerides Level 110 mg/dL (0-150) Cholesterol Level 159 mg/dL (0-200) LDL Cholesterol, Calculated 107 mg/dL (0-100) VLDL Cholesterol, Calculated 22 mg/dL (0-40) Non-HDL Cholesterol Calculated 129 mg/dL (0-129) HDL Cholesterol 30 mg/dL (40-60) Cholesterol/HDL Ratio 5.3 Brief Hospital Course Mr. Suarez is a 63 old Chinese male with minimal Danish admitted for chest pain SOA and found have pneumonia. But troponin peaked to 0.6 from 0.06. Echo normal. Recheck his trop is 0.4. No chest pain. Stable to go home on by mouth Keflex to treat the pneumonia I advised him to establish care with a PCP Consults performed cardiology Procedures performed echo Discharge Information Condition at Discharge: Improved, Stable Follow Up: Weeks (4 weeks pcp for CAP if no better) Disposition/Orders: D/C to Home Scheduled Aspirin (Aspirin Ec) 81 Mg Tablet., 81 MG PO DAILYWBKFT for primary prevention, #60 Prescribed by: JACKIE FREITAS on 11/02/18 1221 Cephalexin (Keflex) 500 Mg Capsule, 1 CAP PO TID for CAP, #21 Prescribed by: JACKIE FREITAS on 11/02/18 1221 Metoprolol Tartrate (Metoprolol Tartrate) 25 Mg Tablet, 12.5 MG PO BID for htn, #60 Prescribed by: JACKIE FREITAS on 11/02/18 1221 Nicotine (NICODERM CQ 21mg) 1 Each Patch.td24, 1 PATCH TP DAILY for smoking, #28 Ref 1 Prescribed by: JACKIE FREITAS on 11/02/18 1221 Scheduled PRN Albuterol Sulfate (Proair Hfa) 8.5 Gm Hfa.aer.ad, 1 PUFF INH PRN Q6HRS PRN for SHORTNESS OF BREATH for 30 Days Prescribed by: JACKIE FREITAS on 11/02/18 1221 Guaifenesin/Dextromethorphan (Guaifenesin Dm Syrup) 5 Ml Syrup, 10 ML PO PRN Q6HRS PRN for COUGH for 7 Days Prescribed by: JACKIE FREITAS on 11/02/18 1221 JACKIE FREITAS MD Nov 03, 2018 13:19
--- NOTE | 2018-11-03 15:16 | PDOC ---
PROGRESS NOTES Chief Complaint Chief Complaint N STEMI CAP SMoker Trace TR, MR, AR History of Present Illness History of Present Illness NO chest pain, no complaints Troponin fourth set is down to 0.6 from 0.9 For MPI per cards Plan: await MPI CPM Being treated for CAP Nicotine patch, smoking cessation done Vitals Vitals Vital Signs Date Time Temp Pulse Resp B/P (MAP) Pulse Ox O2 Delivery O2 Flow Rate FiO2 11/03/18 11:32 98.2 59 15 110/66 (81) 95 Room Air 98.2 11/02/18 15:10 2.0 Physical Exam General: Alert, Oriented X3, Cooperative, No acute distress Heart: Regular rate, Normal S1, Normal S2, No murmurs Abdomen: Normal bowel sounds, Soft, No tenderness, No hepatosplenomegaly, No masses Extremities: No clubbing, No cyanosis, No edema, Normal pulses, No tenderness/swelling Skin: No rashes, No breakdown, No significant lesion Labs LABS Laboratory Tests Test 11/03/18 05:00 11/03/18 11:20 White Blood Count 13.1 x10^3/uL (4.0-11.0) Red Blood Count 4.47 x10^6/uL (4.30-5.70) Hemoglobin 14.2 g/dL (13.0-17.5) Hematocrit 41.8 % (39.0-53.0) Mean Corpuscular Volume 93 fL (79-100) Mean Corpuscular Hemoglobin 32 pg (25-35) Mean Corpuscular Hemoglobin Concent 34 g/dL (31-37) Red Cell Distribution Width 13.9 % (11.5-14.5) Platelet Count 224 x10^3/uL (140-400) Neutrophils (%) (Auto) 70 % (31-73) Lymphocytes (%) (Auto) 23 % (24-48) Monocytes (%) (Auto) 6 % (0-9) Eosinophils (%) (Auto) 0 % (0-3) Basophils (%) (Auto) 0 % (0-3) Neutrophils # (Auto) 9.3 x10^3/uL (1.8-7.7) Lymphocytes # (Auto) 3.1 x10^3/uL (1.0-4.8) Monocytes # (Auto) 0.8 x10^3/uL (0.0-1.1) Eosinophils # (Auto) 0.0 x10^3/uL (0.0-0.7) Basophils # (Auto) 0.0 x10^3/uL (0.0-0.2) Segmented Neutrophils % 65 % (35-66) Band Neutrophils % 1 % (0-9) Lymphocytes % 28 % (24-48) Monocytes % 5 % (0-10) Eosinophils % 1 % (0-5) Platelet Estimate Adequate (ADEQUATE) Troponin I Quantitative 0.610 ng/mL (0.000-0.055) 0.401 ng/mL (0.000-0.055) Triglycerides Level 110 mg/dL (0-150) Cholesterol Level 159 mg/dL (0-200) LDL Cholesterol, Calculated 107 mg/dL (0-100) VLDL Cholesterol, Calculated 22 mg/dL (0-40) Non-HDL Cholesterol Calculated 129 mg/dL (0-129) HDL Cholesterol 30 mg/dL (40-60) Cholesterol/HDL Ratio 5.3 Review of Systems Review of Systems neg cp, neg soa, neg abd sxs, neg fever, pos for cough, rest 14 pt neg Assessment and Plan Assessmemt and Plan Problems Medical Problems: (1) Hypoxia Status: Acute Comment Review of Relevant I have reviewed the following items edy (where applicable) has been applied. Labs Laboratory Tests Test 11/02/18 01:50 11/02/18 04:00 11/02/18 09:15 11/03/18 05:00 White Blood Count 12.5 x10^3/uL (4.0-11.0) 13.1 x10^3/uL (4.0-11.0) Red Blood Count 4.57 x10^6/uL (4.30-5.70) 4.47 x10^6/uL (4.30-5.70) Hemoglobin 14.7 g/dL (13.0-17.5) 14.2 g/dL (13.0-17.5) Hematocrit 43.0 % (39.0-53.0) 41.8 % (39.0-53.0) Mean Corpuscular Volume 94 fL (79-100) 93 fL (79-100) Mean Corpuscular Hemoglobin 32 pg (25-35) 32 pg (25-35) Mean Corpuscular Hemoglobin Concent 34 g/dL (31-37) 34 g/dL (31-37) Red Cell Distribution Width 13.8 % (11.5-14.5) 13.9 % (11.5-14.5) Platelet Count 226 x10^3/uL (140-400) 224 x10^3/uL (140-400) Neutrophils (%) (Auto) 63 % (31-73) 70 % (31-73) Lymphocytes (%) (Auto) 30 % (24-48) 23 % (24-48) Monocytes (%) (Auto) 4 % (0-9) 6 % (0-9) Eosinophils (%) (Auto) 2 % (0-3) 0 % (0-3) Basophils (%) (Auto) 1 % (0-3) 0 % (0-3) Neutrophils # (Auto) 7.9 x10^3/uL (1.8-7.7) 9.3 x10^3/uL (1.8-7.7) Lymphocytes # (Auto) 3.7 x10^3/uL (1.0-4.8) 3.1 x10^3/uL (1.0-4.8) Monocytes # (Auto) 0.6 x10^3/uL (0.0-1.1) 0.8 x10^3/uL (0.0-1.1) Eosinophils # (Auto) 0.2 x10^3/uL (0.0-0.7) 0.0 x10^3/uL (0.0-0.7) Basophils # (Auto) 0.1 x10^3/uL (0.0-0.2) 0.0 x10^3/uL (0.0-0.2) D-Dimer (Humaira) 0.39 ug/mlFEU (0.00-0.50) Sodium Level 146 mmol/L (136-145) Potassium Level 4.0 mmol/L (3.5-5.1) Chloride Level 108 mmol/L (98-107) Carbon Dioxide Level 26 mmol/L (21-32) Anion Gap 12 (6-14) Blood Urea Nitrogen 13 mg/dL (8-26) Creatinine 0.8 mg/dL (0.7-1.3) Estimated GFR (Cockcroft-Gault) 97.3 BUN/Creatinine Ratio 16 (6-20) Glucose Level 120 mg/dL (70-99) Lactic Acid Level 1.4 mmol/L (0.4-2.0) Calcium Level 8.3 mg/dL (8.5-10.1) Magnesium Level 1.8 mg/dL (1.8-2.4) Total Bilirubin 0.4 mg/dL (0.2-1.0) Aspartate Amino Transf (AST/SGOT) 33 U/L (15-37) Alanine Aminotransferase (ALT/SGPT) 33 U/L (16-63) Alkaline Phosphatase 89 U/L (46-116) Creatine Kinase 50 U/L (39-308) Creatine Kinase MB (Mass) 1.3 ng/mL (0.0-3.6) Creatine Kinase MB Relative Index % (0-4) Troponin I Quantitative 0.060 ng/mL (0.000-0.055) 0.658 ng/mL (0.000-0.055) 0.903 ng/mL (0.000-0.055) 0.610 ng/mL (0.000-0.055) NT-Rue-E-Type Natriuretic Peptide 37 pg/mL (0-124) Total Protein 7.3 g/dL (6.4-8.2) Albumin 3.5 g/dL (3.4-5.0) Albumin/Globulin Ratio 0.9 (1.0-1.7) Segmented Neutrophils % 65 % (35-66) Band Neutrophils % 1 % (0-9) Lymphocytes % 28 % (24-48) Monocytes % 5 % (0-10) Eosinophils % 1 % (0-5) Platelet Estimate Adequate (ADEQUATE) Triglycerides Level 110 mg/dL (0-150) Cholesterol Level 159 mg/dL (0-200) LDL Cholesterol, Calculated 107 mg/dL (0-100) VLDL Cholesterol, Calculated 22 mg/dL (0-40) Non-HDL Cholesterol Calculated 129 mg/dL (0-129) HDL Cholesterol 30 mg/dL (40-60) Cholesterol/HDL Ratio 5.3 Test 11/03/18 11:20 Troponin I Quantitative 0.401 ng/mL (0.000-0.055) Laboratory Tests Test 11/03/18 05:00 7/30/19 11:20 White Blood Count 13.1 x10^3/uL (4.0-11.0) Red Blood Count 4.47 x10^6/uL (4.30-5.70) Hemoglobin 14.2 g/dL (13.0-17.5) Hematocrit 41.8 % (39.0-53.0) Mean Corpuscular Volume 93 fL (79-100) Mean Corpuscular Hemoglobin 32 pg (25-35) Mean Corpuscular Hemoglobin Concent 34 g/dL (31-37) Red Cell Distribution Width 13.9 % (11.5-14.5) Platelet Count 224 x10^3/uL (140-400) Neutrophils (%) (Auto) 70 % (31-73) Lymphocytes (%) (Auto) 23 % (24-48) Monocytes (%) (Auto) 6 % (0-9) Eosinophils (%) (Auto) 0 % (0-3) Basophils (%) (Auto) 0 % (0-3) Neutrophils # (Auto) 9.3 x10^3/uL (1.8-7.7) Lymphocytes # (Auto) 3.1 x10^3/uL (1.0-4.8) Monocytes # (Auto) 0.8 x10^3/uL (0.0-1.1) Eosinophils # (Auto) 0.0 x10^3/uL (0.0-0.7) Basophils # (Auto) 0.0 x10^3/uL (0.0-0.2) Segmented Neutrophils % 65 % (35-66) Band Neutrophils % 1 % (0-9) Lymphocytes % 28 % (24-48) Monocytes % 5 % (0-10) Eosinophils % 1 % (0-5) Platelet Estimate Adequate (ADEQUATE) Troponin I Quantitative 0.610 ng/mL (0.000-0.055) 0.401 ng/mL (0.000-0.055) Triglycerides Level 110 mg/dL (0-150) Cholesterol Level 159 mg/dL (0-200) LDL Cholesterol, Calculated 107 mg/dL (0-100) VLDL Cholesterol, Calculated 22 mg/dL (0-40) Non-HDL Cholesterol Calculated 129 mg/dL (0-129) HDL Cholesterol 30 mg/dL (40-60) Cholesterol/HDL Ratio 5.3 Medications Current Medications Albuterol/ Ipratropium (Duoneb) 3 ml 1X ONCE NEB Last administered on 11/02/18at 01:51; Start 11/02/18 at 02:00; Stop 11/02/18 at 02:01; Status DC Dexamethasone Sodium Phosphate (Decadron) 10 mg 1X ONCE IV Last administered on 11/02/18at 02:00; Start 11/02/18 at 02:00; Stop 11/02/18 at 02:01; Status DC Albuterol/ Ipratropium (Duoneb) 3 ml STK-MED ONCE .ROUTE ; Start 11/02/18 at 01:47; Stop 11/02/18 at 01:48; Status DC Aspirin (Kris Aspirin) 325 mg 1X ONCE PO Last administered on 11/02/18at 02:30; Start 11/02/18 at 02:30; Stop 11/02/18 at 03:18; Status DC Ondansetron HCl (Zofran) 4 mg PRN Q8HRS PRN IV NAUSEA/VOMITING; Start 11/02/18 at 03:30; Stop 11/02/18 at 09:30; Status DC Ondansetron HCl (Zofran) 4 mg PRN Q6HRS PRN IV NAUSEA/VOMITING; Start 11/02/18 at 09:30 Acetaminophen/ Codeine Phosphate (Tylenol #3) 1 tab PRN Q6HRS PRN PO MODERATE - SEVERE PAIN; Start 11/02/18 at 09:30 Acetaminophen (Tylenol) 500 mg PRN Q6HRS PRN PO MILD PAIN / TEMP; Start 11/02/18 at 09:30 Guaifenesin (Robitussin Dm) 10 ml PRN Q6HRS PRN PO COUGH; Start 11/02/18 at 09:30 Temazepam (Restoril) 7.5 mg PRN QHS PRN PO INSOMNIA; Start 11/02/18 at 09:30 Albuterol Sulfate (Ventolin Neb Soln) 2.5 mg PRN Q4HRS PRN NEB SHORTNESS OF BREATH; Start 11/02/18 at 09:30 Aspirin (Ecotrin) 81 mg DAILYWBKFT PO Last administered on 11/03/18at 07:54; Start 11/03/18 at 08:00 Metoprolol Tartrate (Lopressor) 12.5 mg BID PO Last administered on 11/02/18at 11:29; Start 11/02/18 at 10:30 Active Scripts Active Keflex (Cephalexin) 500 Mg Capsule 1 Cap PO TID NICODERM CQ 21mg (Nicotine) 1 Each Patch.td24 1 Patch TP DAILY Proair Hfa (Albuterol Sulfate) 8.5 Gm Hfa.aer.ad 1 Puff INH PRN Q6HRS PRN 30 Days Aspirin Ec (Aspirin) 81 Mg Tablet.dr 81 Mg PO DAILYWBKFT Guaifenesin Dm Syrup (Guaifenesin/Dextromethorphan) 5 Ml Syrup 10 Ml PO PRN Q6HRS PRN 7 Days Metoprolol Tartrate 25 Mg Tablet 12.5 Mg PO BID Vitals/I & O Vital Sign - Last 24 Hours 11/02/18 11/02/18 11/02/18 11/02/18 19:39 19:59 20:00 23:19 Temp 98.5 97.5 98.5 97.5 Pulse 53 53 65 Resp 19 20 B/P (MAP) 129/58 (81) 129/58 131/61 (84) Pulse Ox 96 94 O2 Delivery Room Air Room Air Room Air 11/03/18 11/03/18 11/03/18 11/03/18 03:29 07:00 07:36 08:00 Temp 98.2 98.1 98.2 98.1 Pulse 65 60 51 Resp 18 14 B/P (MAP) 130/56 (80) 126/58 (80) Pulse Ox 97 96 O2 Delivery Room Air Room Air Room Air 11/03/18 11:32 Temp 98.2 98.2 Pulse 59 Resp 15 B/P (MAP) 110/66 (81) Pulse Ox 95 O2 Delivery Room Air Intake and Output 11/02/18 11/02/18 11/03/18 15:00 23:00 07:00 Intake Total 240 ml 660 ml 400 ml Balance 240 ml 660 ml 400 ml JACKIE FREITAS MD Nov 03, 2018 15:16
--- NOTE | 2018-11-03 15:16 | PDOC ---
CARDIO Progress Notes Date and Time Date of Service 11/03/2018 Time of Evaluation 1130 Subjective Subjective: No Chest Pain, No shortness of breath, No Palpitations Vitals Vitals Vital Signs Date Time Temp Pulse Resp B/P (MAP) Pulse Ox O2 Delivery O2 Flow Rate FiO2 11/03/18 11:32 98.2 59 15 110/66 (81) 95 Room Air 98.2 11/02/18 15:10 2.0 Weight Weight [ ] Input and Output Intake and Output Intake and Output 11/03/18 06:59 Intake Total 1300 ml Balance 1300 ml Intake Oral 1300 ml # Voids 3 Laboratory Labs Laboratory Tests Test 11/03/18 05:00 11/03/18 11:20 White Blood Count 13.1 x10^3/uL (4.0-11.0) Red Blood Count 4.47 x10^6/uL (4.30-5.70) Hemoglobin 14.2 g/dL (13.0-17.5) Hematocrit 41.8 % (39.0-53.0) Mean Corpuscular Volume 93 fL (79-100) Mean Corpuscular Hemoglobin 32 pg (25-35) Mean Corpuscular Hemoglobin Concent 34 g/dL (31-37) Red Cell Distribution Width 13.9 % (11.5-14.5) Platelet Count 224 x10^3/uL (140-400) Neutrophils (%) (Auto) 70 % (31-73) Lymphocytes (%) (Auto) 23 % (24-48) Monocytes (%) (Auto) 6 % (0-9) Eosinophils (%) (Auto) 0 % (0-3) Basophils (%) (Auto) 0 % (0-3) Neutrophils # (Auto) 9.3 x10^3/uL (1.8-7.7) Lymphocytes # (Auto) 3.1 x10^3/uL (1.0-4.8) Monocytes # (Auto) 0.8 x10^3/uL (0.0-1.1) Eosinophils # (Auto) 0.0 x10^3/uL (0.0-0.7) Basophils # (Auto) 0.0 x10^3/uL (0.0-0.2) Segmented Neutrophils % 65 % (35-66) Band Neutrophils % 1 % (0-9) Lymphocytes % 28 % (24-48) Monocytes % 5 % (0-10) Eosinophils % 1 % (0-5) Platelet Estimate Adequate (ADEQUATE) Troponin I Quantitative 0.610 ng/mL (0.000-0.055) 0.401 ng/mL (0.000-0.055) Triglycerides Level 110 mg/dL (0-150) Cholesterol Level 159 mg/dL (0-200) LDL Cholesterol, Calculated 107 mg/dL (0-100) VLDL Cholesterol, Calculated 22 mg/dL (0-40) Non-HDL Cholesterol Calculated 129 mg/dL (0-129) HDL Cholesterol 30 mg/dL (40-60) Cholesterol/HDL Ratio 5.3 Physical Exam HEENT: Neck Supple W Full Motion Chest: Symmetric LUNGS: Clear to Auscultation Heart: S1S2, RRR (SR), no gallops, no murmurs Abdomen: Soft N/T Extremities: No Edema, No Calf Tenderness Neurology: alert, oriented, follow commands Assessment Assessment 1. Dyspnea with COPD with h/o chronic tobaccoism 2. Elevated troponin; highest 0.9. CP free. EF and WM nml 3. Tobaccoism; discussed/encouraged cessation Recommendations 1. Pt had caffeine today. MPI tomorrow. 2. ASA, BB 3. Smoking cessation MAURA GALLARDO APRN Nov 03, 2018 15:16
[2018-11-03 15:30] VITALS: BP 120/49
[2018-11-03 19:33] VITALS: BP 126/57
[2018-11-03 22:56] VITALS: BP 152/65
[2018-11-04 02:59] VITALS: BP 117/59
--- NOTE | 2018-11-04 03:09 | NUR ---
Pageniyah and spoke to Dr. Hendrix regarding patients ST elevation and large T wave observed on patients blender. Patient asymptomatic and resting in bed. No orders given at this time.
[2018-11-04 05:01] LABS: CALCIUM 8.4 mg/dL (8.5-10.1); CREATININE 0.7 mg/dL (0.7-1.3); GFR 113.5; MAGNESIUM 1.8 mg/dL (1.8-2.4); POTASSIUM 3.8 mmol/L (3.5-5.1)
[2018-11-04] MEDS ORDERED: REGADENOSON 0.4 MG/5 ML DISP.SYRIN. IV ONE (07:45)
[2018-11-04 07:49] VITALS: BP 123/58
[2018-11-04] MEDS: ASPIRIN ENTERIC COATED 81 MG TABLET.DR. PO SCH (08:00)
[2018-11-04] MEDS: METOPROLOL TART IMMED RELEASE 25 MG TABLET. PO SCH (09:00)
[2018-11-04 10:15] LABS: BASO # 0.1 x10^3/uL (0.0-0.2); BASO % 1 % (0-3); EOS # 0.1 x10^3/uL (0.0-0.7); EOS % 1 % (0-3); HEMATOCRIT 42.6 % (39.0-53.0); HEMOGLOBIN 14.4 g/dL (13.0-17.5); LYMPH # 3.7 x10^3/uL (1.0-4.8); LYMPH % 39 % (24-48); MEAN CORPUSCULAR HEMOGLOBIN 32 pg (25-35); MEAN CORPUSCULAR HGB CONC 34 g/dL (31-37); MEAN CORPUSCULAR VOLUME 95 fL (79-100); MONO # 0.6 x10^3/uL (0.0-1.1); MONO % 7 % (0-9); NEUT # 4.9 x10^3/uL (1.8-7.7); NEUT % 52 % (31-73); PLATELET COUNT 216 x10^3/uL (140-400); RED CELL DISTRIBUTION WIDTH 13.7 % (11.5-14.5); WHITE BLOOD COUNT 9.4 x10^3/uL (4.0-11.0)
[2018-11-04] MEDS ORDERED: NITROGLYCERIN SUBLINGUAL 0.4 MG BOTTLE OF 25. SL PRN (10:15)
[2018-11-04] MEDS ORDERED: MORPHINE SULFATE 2 MG/ML VIAL. IV PRN (10:15)
--- NOTE | 2018-11-04 10:18 | PDOC ---
CARDIO Progress Notes Date and Time Date of Service 11/04/18 Time of Evaluation 1010 Subjective Subjective: No Chest Pain, No shortness of breath, No Palpitations Vitals Vitals Vital Signs Date Time Temp Pulse Resp B/P (MAP) Pulse Ox O2 Delivery O2 Flow Rate FiO2 11/04/18 08:00 Room Air 2.0 11/04/18 07:49 98.0 59 18 123/58 (79) 93 98.0 Weight Weight [ ] Input and Output Intake and Output Intake and Output 11/04/18 06:59 Intake Total 740 ml Balance 740 ml Intake Oral 740 ml # Voids 3 Laboratory Labs Laboratory Tests Test 11/03/18 11:20 11/04/18 03:55 Troponin I Quantitative 0.401 ng/mL (0.000-0.055) Sodium Level 145 mmol/L (136-145) Potassium Level 3.8 mmol/L (3.5-5.1) Chloride Level 108 mmol/L (98-107) Carbon Dioxide Level 26 mmol/L (21-32) Anion Gap 11 (6-14) Blood Urea Nitrogen 10 mg/dL (8-26) Creatinine 0.7 mg/dL (0.7-1.3) Estimated GFR (Cockcroft-Gault) 113.5 Glucose Level 105 mg/dL (70-99) Calcium Level 8.4 mg/dL (8.5-10.1) Magnesium Level 1.8 mg/dL (1.8-2.4) Physical Exam HEENT: Neck Supple W Full Motion Chest: Symmetric LUNGS: Clear to Auscultation Heart: S1S2, RRR (SR), no gallops, no murmurs Abdomen: Soft N/T Extremities: No Edema, No Calf Tenderness Neurology: alert, oriented, follow commands Assessment Assessment 1. Dyspnea with COPD with h/o chronic tobaccoism 2. Elevated troponin; highest 0.9. CP free. EF and WM nml 3. Tobaccoism; discussed/encouraged cessation Recommendations MPI without evidence of ischemia or infarct Continue ASA, BB May discharge from a CV standpoint and f/u PRN THERESA EWING APRN Nov 04, 2018 10:18
[2018-11-04] MEDS ORDERED: ASPIRIN ENTERIC COATED 325 MG TABLET.DR. PO SCH (11:00)
--- NOTE | 2018-11-04 11:22 | RAD ---
MR#: [id number] Date of Study: 11/04/2018 Ordering Physician: MAURA GALLARDO, Referring Physician: SIENNA BEACH Tech: RT Garrett (R) (N) APPROVED REPORT Test Type: Pharmacological Stress Nurse/Tech: Katie Hawley R.N. Test Indications: c/p Cardiac History: htn,copd Medications: See Electronic Medical Record Medical History: See Electronic Medical Record Resting ECG: SB w/ST elevation in leads II,III, AVF, V3-V6 Resting Heart Rate: 52 bpm Resting Blood Pressure: 121/56mmHg Pretest Chest Pain: No chest pain Nurse/Tech Notes S1S2, lungs CTA Consent: The procedure was explained to the patient in lay terms. Informed consent was witnessed. Sadiq eout was entered into [employer]. History and Stress Test performed by RODY Zhu Pharm. Details Pharmacologic stress testing was performed using 0.4mg per 5ml of regadenoson given intravenously ove r 7-10 seconds. Stress Symptoms slight SOB POST EXERCISE Reason for Termination: Infusion complete Max HR: 93 bpm Max Blood Pressure: 134/60mmHg Blood Pressure response to exercise: Normal blood pressure response during stress. Heart Rate response to exercise: wnl Chest Pain: No. Arrhythmia: No. ST Change: No. INTERPRETATION Stress EKG Conclusion: Baseline EKG showed sinus rhythm with non specific ST elevations. No ischemic changes at peak stress. No arrhythmias. Imaging Protocol IMAGE PROTOCOL: Rest Tc-99m/stress Tc-99m 2 days Rest: Stress: Viability: Radiopharm.Tc99m [id number] Sestamibi Dose10.5mCi 33mCi Duration 13min. 13min. Img Date 11/03/2018 11/04/2018 Inj-Img [id number]. 60min. Rest Admin Site:IV - Right AntecubitalAdministrator:RODY Zuh Stress Admin Site: IV - Right AntecubitalAdministrator: RODY Zhu STRESS DATA End Diast. Vol.91.0mlLVEDV index BSA53.0ml End Syst. Vol.26.0mlLVESV index BSA15.0ml Myocardial Qdlc140.0gEject. Iwkxcqku02.0% Stress Scores Regional WT1.00Summed WT17.00 Regional WM0.00Summed WM1.00 LV Perfusion Scintigrapihic images showed fixed inferior wall defect most probably diaphragmatic attenuation artif act based on normal wall motion. No other fixed or reversible defects seen. Wall Motion Normal left ventricular systolic function with ejection fraction calculated at 71%. LV Perf. Quant 17 Seg. SSS12.00 17 Seg. SRS14.00 17 Seg. SDS2.00 Stress Defect Extent (% LAD)1.90Rest Defect Extent (% LAD)14.40Rev. Defect Extent (% LAD)0.00 Stress Defect Extent (% LCX) 38.80Rest Defect Extent (% LCX)38.80Rev. Defect Extent (% LCX)0.00 Stress Defect Extent (% RCA)28.90Rest Defect Extent (% RCA)45.60Rev. Defect Extent (% RCA)0.00 Stress Defect Extent (% ENRIQUE)20.90Rest Defect Extent (% ENRIQUE)31.10Rev. Defect Extent (% ENRIQUE)0.70 Conclusion 1. Regadenoson cardioisotope stress test showed diaphragmatic attenuation artiract without any eviden ce of ischemia or infarct. 2. Normal left ventricular systolic function with ejection fraction calculated at 71%. 3. Low risk for cardiac events. Signed by : Hector Roque, Electronically Approved : 11/04/2018 11:22:29
[2018-11-04 11:32] VITALS: BP 117/59
--- NOTE | 2018-11-04 12:43 | PDOC3 ---
Discharge Summary Visit Information Date of Admission: Nov 01, 2018 Date of Discharge: Nov 04, 2018 Admitting Diagnosis Comment: CAP - beginning consolidation on CXR Smoker Mild hypernatremia 146 Elevated troponin with reassuring EKG-peaks 0.6-echo goodk, lOW RISK MPI SIRS, no sepsis Final Diagnosis Problems Medical Problems: (1) Hypoxia Status: Acute Brief Hospital Course Allergies Allergies Coded Allergies Type Severity Reaction Last Updated Verified No Known Drug Allergies 11/02/18 No Vital Signs Vital Signs Date Time Temp Pulse Resp B/P (MAP) Pulse Ox O2 Delivery O2 Flow Rate FiO2 11/04/18 11:32 98.0 60 16 117/59 (78) 99 Room Air 98.0 11/04/18 08:00 2.0 Lab Results Laboratory Tests Test 11/03/18 05:00 11/03/18 11:20 11/04/18 03:55 White Blood Count 13.1 x10^3/uL (4.0-11.0) 9.4 x10^3/uL (4.0-11.0) Red Blood Count 4.47 x10^6/uL (4.30-5.70) 4.50 x10^6/uL (4.30-5.70) Hemoglobin 14.2 g/dL (13.0-17.5) 14.4 g/dL (13.0-17.5) Hematocrit 41.8 % (39.0-53.0) 42.6 % (39.0-53.0) Mean Corpuscular Volume 93 fL (79-100) 95 fL (79-100) Mean Corpuscular Hemoglobin 32 pg (25-35) 32 pg (25-35) Mean Corpuscular Hemoglobin Concent 34 g/dL (31-37) 34 g/dL (31-37) Red Cell Distribution Width 13.9 % (11.5-14.5) 13.7 % (11.5-14.5) Platelet Count 224 x10^3/uL (140-400) 216 x10^3/uL (140-400) Neutrophils (%) (Auto) 70 % (31-73) 52 % (31-73) Lymphocytes (%) (Auto) 23 % (24-48) 39 % (24-48) Monocytes (%) (Auto) 6 % (0-9) 7 % (0-9) Eosinophils (%) (Auto) 0 % (0-3) 1 % (0-3) Basophils (%) (Auto) 0 % (0-3) 1 % (0-3) Neutrophils # (Auto) 9.3 x10^3/uL (1.8-7.7) 4.9 x10^3/uL (1.8-7.7) Lymphocytes # (Auto) 3.1 x10^3/uL (1.0-4.8) 3.7 x10^3/uL (1.0-4.8) Monocytes # (Auto) 0.8 x10^3/uL (0.0-1.1) 0.6 x10^3/uL (0.0-1.1) Eosinophils # (Auto) 0.0 x10^3/uL (0.0-0.7) 0.1 x10^3/uL (0.0-0.7) Basophils # (Auto) 0.0 x10^3/uL (0.0-0.2) 0.1 x10^3/uL (0.0-0.2) Segmented Neutrophils % 65 % (35-66) Band Neutrophils % 1 % (0-9) Lymphocytes % 28 % (24-48) Monocytes % 5 % (0-10) Eosinophils % 1 % (0-5) Platelet Estimate Adequate (ADEQUATE) Troponin I Quantitative 0.610 ng/mL (0.000-0.055) 0.401 ng/mL (0.000-0.055) 0.136 ng/mL (0.000-0.055) Triglycerides Level 110 mg/dL (0-150) Cholesterol Level 159 mg/dL (0-200) LDL Cholesterol, Calculated 107 mg/dL (0-100) VLDL Cholesterol, Calculated 22 mg/dL (0-40) Non-HDL Cholesterol Calculated 129 mg/dL (0-129) HDL Cholesterol 30 mg/dL (40-60) Cholesterol/HDL Ratio 5.3 Sodium Level 145 mmol/L (136-145) Potassium Level 3.8 mmol/L (3.5-5.1) Chloride Level 108 mmol/L (98-107) Carbon Dioxide Level 26 mmol/L (21-32) Anion Gap 11 (6-14) Blood Urea Nitrogen 10 mg/dL (8-26) Creatinine 0.7 mg/dL (0.7-1.3) Estimated GFR (Cockcroft-Gault) 113.5 Glucose Level 105 mg/dL (70-99) Calcium Level 8.4 mg/dL (8.5-10.1) Magnesium Level 1.8 mg/dL (1.8-2.4) Laboratory Tests Test 11/04/18 03:55 White Blood Count 9.4 x10^3/uL (4.0-11.0) Red Blood Count 4.50 x10^6/uL (4.30-5.70) Hemoglobin 14.4 g/dL (13.0-17.5) Hematocrit 42.6 % (39.0-53.0) Mean Corpuscular Volume 95 fL (79-100) Mean Corpuscular Hemoglobin 32 pg (25-35) Mean Corpuscular Hemoglobin Concent 34 g/dL (31-37) Red Cell Distribution Width 13.7 % (11.5-14.5) Platelet Count 216 x10^3/uL (140-400) Neutrophils (%) (Auto) 52 % (31-73) Lymphocytes (%) (Auto) 39 % (24-48) Monocytes (%) (Auto) 7 % (0-9) Eosinophils (%) (Auto) 1 % (0-3) Basophils (%) (Auto) 1 % (0-3) Neutrophils # (Auto) 4.9 x10^3/uL (1.8-7.7) Lymphocytes # (Auto) 3.7 x10^3/uL (1.0-4.8) Monocytes # (Auto) 0.6 x10^3/uL (0.0-1.1) Eosinophils # (Auto) 0.1 x10^3/uL (0.0-0.7) Basophils # (Auto) 0.1 x10^3/uL (0.0-0.2) Sodium Level 145 mmol/L (136-145) Potassium Level 3.8 mmol/L (3.5-5.1) Chloride Level 108 mmol/L (98-107) Carbon Dioxide Level 26 mmol/L (21-32) Anion Gap 11 (6-14) Blood Urea Nitrogen 10 mg/dL (8-26) Creatinine 0.7 mg/dL (0.7-1.3) Estimated GFR (Cockcroft-Gault) 113.5 Glucose Level 105 mg/dL (70-99) Calcium Level 8.4 mg/dL (8.5-10.1) Magnesium Level 1.8 mg/dL (1.8-2.4) Troponin I Quantitative 0.136 ng/mL (0.000-0.055) Brief Hospital Course Mr. Suarez is a 63 old Ukrainian speaking male smoker, admitted for CAP but SERIAL troponin was elevated troponin from 0.06 to 0.4 to 0..6 hence echocardiogram was done which was good but then the troponin continue to elevate hence MPI was done which is low risk cardiovascular disease. Serial troponins now 0.01. No chest pain. Cleared to go home on beta radha aspirin 325 and CAP Coverage No PT needs Self-pay Consults performed cards Procedures performed echo and MPI Discharge Information Condition at Discharge: Improved, Stable Disposition/Orders: D/C to Home Scheduled Aspirin (Aspirin Ec) 81 Mg Tablet.dr, 81 MG PO [id number] for primary prevention, #60 Prescribed by: JACKIE FREITAS on 11/02/18 1221 Cephalexin (Keflex) 500 Mg Capsule, 1 CAP PO TID for CAP, #21 Prescribed by: JACKIE FREITAS on 11/02/18 1221 Metoprolol Tartrate (Metoprolol Tartrate) 25 Mg Tablet, 12.5 MG PO BID for htn, #60 Prescribed by: JACKIE FREITAS on 11/02/18 1221 Nicotine (NICODERM CQ 21mg) 1 Each Patch.td24, 1 PATCH TP DAILY for smoking, #28 Ref 1 Prescribed by: JACKIE FREITAS on 11/02/18 1221 Scheduled PRN Albuterol Sulfate (Proair Hfa) 8.5 Gm Hfa.aer.ad, 1 PUFF INH PRN Q6HRS PRN for SHORTNESS OF BREATH for 30 Days Prescribed by: JACKIE FREITAS on 11/02/18 1221 Guaifenesin/Dextromethorphan (Guaifenesin Dm Syrup) 5 Ml Syrup, 10 ML PO PRN Q6HRS PRN for COUGH for 7 Days Prescribed by: JACKIE FREITAS on 11/02/18 1221 JACKIE FREITAS MD Nov 04, 2018 12:43
== END 2018-11-04 18:00 | disposition home or self-care (01) | DRG 190 ==
LOC: ER 01:06 → 6 SOUTH 02:40
PROVIDERS: ADMIT Internal Medicine; ATTEND Internal Medicine
DX: J44.0 Chronic obstructive pulmonary disease with (acute) lower respiratory infection (principal); J18.9 Pneumonia, unspecified organism; E87.0 Hyperosmolality and hypernatremia; J44.1 Chronic obstructive pulmonary disease with (acute) exacerbation; F17.210 Nicotine dependence, cigarettes, uncomplicated; I10 Essential (primary) hypertension; I25.10 Atherosclerotic heart disease of native coronary artery without angina pectoris; Z79.899 Other long term (current) drug therapy; Z82.3 Family history of stroke; Z82.49 Family history of ischemic heart disease and other diseases of the circulatory system; Z71.6 Tobacco abuse counseling
CPT/HCPCS: 36415; 71046; 78452; 80048; 80053; 80061; 82553; 83605; 83735; 83880; 84484; 85007; 85025; 85379; 93005; 93017; 93306; 94640; 94760; 96374; 96375; A9500; J1100; J2785; J7620; 99285-25

== ENCOUNTER → 2019-05-04 | Outpatient (CLI) | payer OTHER ==
[~2019-05-04] MED LIST: ALBU2.5V8 INH; ASPI-612 PO; CEPH-264 PO; GUAI5SYR PO; METO25TA4 PO; NICO1PAT21 TP
== END | disposition home or self-care (01) ==
LOC: PF 10:33
PROVIDERS: ATTEND Dermatology Procedural Dermatology
DX: Z02.71 Encounter for disability determination (principal); J44.9 Chronic obstructive pulmonary disease, unspecified
CPT/HCPCS: 94010